=== PATIENT | female | born 1975 | race Caucasian/White ===

== ENCOUNTER 2018-05-19 06:37 | Day surgery (SDC) | payer OTHER ==
[~2018-05-19 06:37] MED LIST: LACTATED RINGER'S 1,000 ML IV*
[2018-05-19] MEDS ORDERED: LACTATED RINGER'S 1,000 ML IV* (07:00)
[2018-05-19] MEDS ORDERED: DIPHENHYDRAMINE 50 MG INJ IV (09:00)
[2018-05-19] MEDS ORDERED: HYDROmorphONE 1 MG/5 ML IV SYRINGE IV ×2 (09:00)
[2018-05-19] MEDS ORDERED: FENTAnyl 50 MCG/ML VIAL IV ×3 (09:00)
[2018-05-19] MEDS ORDERED: METOCLOPRAMIDE 10 MG INJ IV (09:00)
[2018-05-19] MEDS ORDERED: FENTAnyl 50 MCG/ML VIAL (10:03)
[2018-05-19] MEDS ORDERED: PROVENTIL HFA 6.7GM INHALER (10:21)
[2018-05-19] MEDS ORDERED: SUCCINYLCHOLINE CHLORIDE 100 MG/5 ML SYG IV (10:27)
[2018-05-19] MEDS ORDERED: PROPOFOL 20 ML (10:28)
[2018-05-19] MEDS ORDERED: CEFAZOLIN 1 GM INJ (10:28)
[2018-05-19] MEDS ORDERED: ROCURONIUM 50 MG INJ (10:28)
[2018-05-19] MEDS ORDERED: LIDOCAINE 100 MG SYRINGE (10:28)
[2018-05-19] MEDS: STRONG IODINE 14 ML SOLUTION TOP (10:41)
[2018-05-19] MEDS ORDERED: SUGAMMADEX SODIUM 200 MG/2 ML VIAL IV (11:01)
[2018-05-19] MEDS: ONDANSETRON 4 MG INJ IV (11:15)
[2018-05-19] MEDS: MEPERIDINE 25 MG INJ IV (11:15)
[2018-05-19] MEDS: HYDROmorphONE 1 MG/5 ML IV SYRINGE IV (11:41)
== END 2018-05-19 12:20 | disposition home or self-care (01) ==
LOC: SDS 06:37
DX: N87.0 Mild cervical dysplasia (principal); N72 Inflammatory disease of cervix uteri; I10 Essential (primary) hypertension; J45.909 Unspecified asthma, uncomplicated; E66.9 Obesity, unspecified
CPT/HCPCS: 57520; 71045; 88305; 93005

== ENCOUNTER 2018-09-24 16:45 | Emergency (ER) | payer OTHER ==
[2018-09-24] MEDS: predniSONE 20 MG TAB PO (17:52)
[2018-09-24] MEDS: ALBUTEROL 0.5% (NEB) 2.5 MG/0.5 ML AMP INH (17:56)
[2018-09-24] MEDS: IPRATROPIUM (NEB) 0.5 MG/2.5 ML AMP INH (17:56)
== END 2018-09-24 19:09 | disposition home or self-care (01) ==
LOC: FTE 16:45
DX: J45.901 Unspecified asthma with (acute) exacerbation (principal); I10 Essential (primary) hypertension
CPT/HCPCS: 71045; 94644; 99283-25

== ENCOUNTER 2018-10-19 23:49 | Emergency (ER) | payer OTHER ==
[2018-10-20] MEDS: IPRATROPIUM (NEB) 0.5 MG/2.5 ML AMP INH (00:30)
[2018-10-20] MEDS: ALBUTEROL 0.5% (NEB) 2.5 MG/0.5 ML AMP INH (00:30)
[2018-10-20] MEDS: predniSONE 20 MG TAB PO (00:50)
== END 2018-10-20 02:05 | disposition home or self-care (01) ==
LOC: E/R 23:49
DX: J45.901 Unspecified asthma with (acute) exacerbation (principal); I10 Essential (primary) hypertension
CPT/HCPCS: 71045; 93005; 94644; 99284-25

== ENCOUNTER 2019-07-15 13:24 | Emergency (ER) | payer OTHER ==
[2019-07-15] MEDS: SOD CHLORIDE 0.9% 1,000 ML IV (14:03)
[2019-07-15] MEDS: DEXAMETHASONE 10 MG/ML 1 ML INJ IV (14:03)
[2019-07-15] MEDS: LEVALBUTEROL (NEB) 1.25 MG/0.5 ML AMP INH (14:10)
[2019-07-15 14:11] LABS: ADD MAN DIFF? NO
[2019-07-15] MEDS: ALBUTEROL 0.5% (NEB) 2.5 MG/0.5 ML AMP INH (14:12)
[2019-07-15 14:13] LABS: BASOPHIL # 0.1 10^3/ul (0.0-0.1); BASOPHILS % 0.8 % (0.0-2.0); EOSINOPHILS # 0.3 10^3/ul (0.0-0.5); HEMATOCRIT 32.7 % (37.0-47.0); HEMOGLOBIN 10.9 g/dl (12.0-16.0); LYMPHOCYTES # 1.4 10^3/ul (0.8-2.9); LYMPHOCYTES % 23.5 % (15.0-51.0); MEAN CORPUSCULAR HEMOGLOBIN 29.3 pg (29.0-33.0); MEAN CORPUSCULAR HGB CONC 33.3 g/dl (32.0-37.0); MEAN CORPUSCULAR VOLUME 87.9 fl (82.0-101.0); MEAN PLATELET VOLUME 10.6 fl (7.4-10.4); MONOCYTE # 0.5 10^3/ul (0.3-0.9); MONOCYTES % 8.7 % (0.0-11.0); NEUTROPHIL # 3.7 10^3/ul (1.6-7.5); NEUTROPHILS % 61.8 % (39.0-77.0); PLATELET COUNT 272 10^3/UL (140-415); RED BLOOD COUNT 3.72 10^6/ul (4.20-5.40); RED CELL DISTRIBUTION WIDTH 13.3 % (11.5-14.5)
[2019-07-15 14:31] LABS: ANION GAP 7 (5-13); BLOOD UREA NITROGEN 10 mg/dl (7-20); CALCIUM 8.6 mg/dl (8.4-10.2); CARBON DIOXIDE 24 mmol/L (21-31); CHLORIDE 109 mmol/L (97-110); CREATININE 0.71 mg/dl (0.44-1.00); Estimated GFR > 60 mL/min (>60); GLUCOSE 103 mg/dl (70-220); POTASSIUM 3.7 mmol/L (3.5-5.1); SODIUM 140 mmol/L (135-144)
== END 2019-07-15 15:38 | disposition home or self-care (01) ==
LOC: FTE 15:38
DX: J45.41 Moderate persistent asthma with (acute) exacerbation (principal); I10 Essential (primary) hypertension
CPT/HCPCS: 36415; 71045; 80048; 85025; 94644; 96361; 96374; 99284-25

== ENCOUNTER 2019-07-15 19:41 | Emergency (ER) | payer OTHER ==
[2019-07-15 20:02] LABS: HEMOGLOBIN 13.4 g/dl (12.0-16.0); MEAN CORPUSCULAR HGB CONC 32.7 g/dl (32.0-37.0); MEAN CORPUSCULAR VOLUME 88.7 fl (82.0-101.0); MEAN PLATELET VOLUME 10.1 fl (7.4-10.4); PLATELET COUNT 330 10^3/UL (140-415); RED BLOOD COUNT 4.62 10^6/ul (4.20-5.40); RED CELL DISTRIBUTION WIDTH 13.5 % (11.5-14.5)
[2019-07-15 20:02] LABS: WHITE BLOOD COUNT 7.9 10^3/ul (4.8-10.8)
[2019-07-15 20:03] LABS: ADD MAN DIFF? YES; POSITIVE DIFF @See below
[2019-07-15 20:18] LABS: ANION GAP 11 (5-13); BLOOD UREA NITROGEN 10 mg/dl (7-20); CALCIUM 9.2 mg/dl (8.4-10.2); CARBON DIOXIDE 21 mmol/L (21-31); CHLORIDE 109 mmol/L (97-110); CHOLESTEROL 214 mg/dl (100-200); CREATINE KINASE 159 IU/L (23-200); CREATININE 0.84 mg/dl (0.44-1.00); Estimated GFR > 60 mL/min (>60); GLUCOSE 177 mg/dl (70-220); HDL CHOLESTEROL 70 mg/dl (34-88); LDL CHOLESTEROL,CALCULATED 127 mg/dl; POTASSIUM 4.2 mmol/L (3.5-5.1); SODIUM 141 mmol/L (135-144); TRIGLYCERIDES 85 mg/dl (0-149)
[2019-07-15 20:20] LABS: ETHANOL < 10.0 mg/dl (0-0)
[2019-07-15 20:20] LABS: HEMOGLOBIN A1C 5.5 % (0-5.9)
[2019-07-15 20:21] LABS: INR 0.86; PROTIME 11.8 Sec (11.9-14.9); PT RATIO 0.9
[2019-07-15 20:22] LABS: PARTIAL THROMBOPLASTIN TIME 26.3 Sec (23.0-35.0)
[2019-07-15 20:30] LABS: CK INDEX 0.9; CK-MB 1.44 ng/ml (0.0-2.4); TROPONIN-I < 0.012 ng/ml (0.000-0.120)
[2019-07-15 20:50] LABS: ANISOCYTOSIS 1+ (0-0); GIANT THROMBO% (M) 1 % (0-0); LYMPHOCYTES #M 0.5 10^3/ul (0.8-2.9); LYMPHOCYTES % (M) 7 % (15-51); MICROCYTOSIS 1+ (0-0); PLATELET ESTIMATE NORMAL; POLYCHROMASIA 1+ (0-0); SEGMENTED NEUTROPHILS (M) % 93 % (39-77); SMUDGE%M 2 % (0-0)
[2019-07-15] MEDS: SOD CHLORIDE 0.9% 1,000 ML IV (20:56)
[2019-07-15] MEDS: LORAZEPAM 2 MG INJ IV (21:13)
== END 2019-07-15 22:43 | disposition home or self-care (01) ==
LOC: E/R 19:41
DX: R20.0 Anesthesia of skin (principal); J45.909 Unspecified asthma, uncomplicated; I10 Essential (primary) hypertension
CPT/HCPCS: 36415; 70450; 70496; 70498; 80048; 80061; 80307; 82550; 82553; 83036; 84484; 85025; 85610; 85730; 93005; 96374; 99285-25